=== PATIENT | female | born 1975 | race African-American/Black ===

== ENCOUNTER 2019-09-27 21:17 | Emergency (ER) | payer MEDICAID ==
[~2019-09-27] VITALS: Ht 152.4 cm; Wt 67.1 kg
--- NOTE | 2019-09-27 21:21 | NUR ---
PT CAME TO THE ED C/O COUGH AND WHEEZING X 2 WEEKS. BILATERAL WHEEZING NOTED. PT TOOK VENTOLIN 4 MG AND CETRIZINE 10 MG @ 1900. PT AAOX4, VSS, RESPIRATIONS EVEN AND UNLABORED ON RA W/ NAD NOTED. PT CONNECTED TO THE [employer] AND POX.
[2019-09-27 21:22] VITALS: BP 119/71
--- NOTE | 2019-09-27 21:27 | NUR ---
RAQUEL FREEMAN AT BEDSIDE
--- NOTE | 2019-09-27 21:32 | NUR ---
CALLED RT FOR BREATHING TX
[2019-09-27] MEDS: ALBUTEROL FS 2.5 MG/3 ML VIAL.NEB NEB ONE (21:39)
[2019-09-27] MEDS: IPRATROPIUM NEB FS 0.5 MG/2.5 ML AMPUL.NEB NEB ONE (21:39)
[2019-09-27] MEDS ORDERED: IPRATROPIUM NEB FS 0.5 MG/2.5 ML AMPUL.NEB ONE (21:49)
[2019-09-27] MEDS ORDERED: ALBUTEROL FS 2.5 MG/3 ML VIAL.NEB ONE (21:49)
--- NOTE | 2019-09-27 22:07 | NUR ---
BREATHING TX IN PROGRESS.
[2019-09-27] MEDS ORDERED: predniSONE 20 MG TABLET ONE (22:08)
[2019-09-27] MEDS: predniSONE 20 MG TABLET PO ONE (22:40)
--- NOTE | 2019-09-27 22:55 | NUR ---
Patient discharged to home in stable condition. Written and verbal after care instructions given. Patient verbalizes understanding of instruction.pt.ambulatory with a steady gait
== END 2019-09-27 22:56 | disposition home or self-care (01) ==
LOC: ER 21:22
DX: J45.909 Unspecified asthma, uncomplicated (principal)
CPT/HCPCS: 94644; 99285; J7512